=== PATIENT | female | born 1985 | race Caucasian/White ===

== ENCOUNTER 2017-06-21 18:28 | Outpatient (CLI) | payer OTHER ==
[2017-06-21 18:40] LABS: Appearance,Urine Clear (Clear); Bilirubin,Urine Negative (Negative); Blood,Urine Negative (Negative); Color,Urine Light Yellow; Glucose,Urine (UA) Negative (Negative); Ketones,Urine Negative (Negative); Leukocyte Esterase,Urine Negative (Negative); Nitrite,Urine Negative (Negative); Protein,Urine Negative (Negative); Specific Gravity,Urine 1.006 (1.001-1.035); Urobilinogen,Urine <2.0 mg/dL (<2.0)
[2017-06-21 19:23] VITALS: BP 121/70; PULSE 82; RESP 16; TEMP 97.5
--- NOTE | 2017-06-26 11:55 | P.MSEPDOC ---
Presenting Problems - Arrival Data Date of Arrival on Unit: 06/21/17 Time of Arrival on Unit: 18:28 Mode of Transport: Ambulatory - Complaint OB-Reason for Admission/Chief Complaint: Observation/Evaluation Medical History - Information : 1 Para: 0 Term: 0 : 0 Abortions: Spontaneous or Elective: 0 Number of Living Children: 0 - Gestational Age Gestational Age by CHAVA (wks/days): 20 Weeks and 2 Days Review of Systems - Review of Systems Constitutional: No problems Breast: No problems ENT: No problems Cardiovascular: No problems Respiratory: No problems Gastrointestinal: No problems Genitourinary: No problems Musculoskeletal: No problems Neurological: No problems Skin: No problems Vital Signs - Temperature Temperature: 97.5 F Temperature Source: Temporal Artery Scan - Pulse Right Sitting Pulse Rate: 82 Pulse Assessment Method: Automatic Cuff - Respirations Respiratory Rate: 16 Oxygen Delivery Method: Room Air - Blood Pressure Right Arm Blood Pressure: 121/70 Blood Pressure Mean: 87 Blood Pressure Source: Automatic Cuff Medical Screen Scoring (Pre) - Cervical Exam Dilation: Exam Deferred Effacement: Exam Deferred Membranes: Intact - Uterine Contractions Frequency: N/A - Maternal Vital Signs Maternal Temperature: N/A Maternal Blood Pressure: N/A Signs of Preeclampsia: N/A Maternal Respirations: N/A - Pain Assessment Pain Location and Character: Right, Back Pain Scale Used: Numeric (1 - 10) Pain Intensity: 7 Pain Description: *Acute Pain Frequency: Intermittent Pain Duration Units: Hours Pain Behavior: None Exhibited - Maternal Trauma Maternal Trauma: N/A - Assessment Baseline FHR: 140 - Total Score Total Score (Pre): 0 - Level of Risk Level of Risk: Low (0-5) Physician Notification (Pre) - Physician Notified Physician Notified Date: 06/21/17 Physician Notified Time: 19:08 Physician/Practitioner Notifed:: Patricia Solorzano Order Received: Yes (D/c home) Disposition - Disposition OB Disposition: Discharge to home Discharge Date: 06/21/17 Discharge Time: 19:15 I agree with the RN Medical Screening Exam: Yes Risk & Benefit of care provided described in d/c instruction: Yes Diagnosis: RELATED CONDITIONS, UNSPECIFIED, SECOND TRIMESTER
== END 2017-06-21 19:15 | disposition home or self-care (01) ==
LOC: FBPOP 18:28
PROVIDERS: ATTEND Obstetrics & Gynecology
DX: O26.92 Pregnancy related conditions, unspecified, second trimester (principal); Z3A.20 20 weeks gestation of pregnancy
CPT/HCPCS: 81003; 99213

== ENCOUNTER 2017-11-06 14:17 | Inpatient (IN) | payer BC ==
[2017-11-11] MEDS ORDERED: BUTORPHANOL 1 MG/ML 1 ML VIAL IV PRN ×2 (18:15→18:53)
[2017-11-11] MEDS ORDERED: DINOPROSTONE 10 MG INSERT.ER VAGINAL ONE (18:15)
[2017-11-11 18:27] VITALS: BMI 28.3
--- NOTE | 2017-11-11 18:40 | P.HPOB ---
History of Present Illness H&P Date: 11/11/17 Chief Complaint: IUP at 40-5/7 weeks, elective induction of labor This is a very pleasant 32-year-old 1 para 0 at 40-5/7 weeks with an estimated due date of 11/06/2017. Patient presents for elective induction of labor secondary to postdates. Patient denies contractions at this time. She notes good movement, no loss of fluid or vaginal bleeding. Next On blood work shows a blood type of O+, rubella immune, hepatitis B surface antigen negative, group beta strep was also negative in addition. This has been essentially uncomplicated Review of Systems Constitutional: Reports fatigue, Denies chills, Denies fever Cardiovascular: Reports edema Respiratory: Denies cough, Denies dyspnea Gastrointestinal: Denies constipation, Denies diarrhea Genitourinary: Reports Past Medical History Past Medical History: No Reported History History of Any Multi-Drug Resistant Organisms: None Reported Additional Past Surgical History / Comment(s): open reduction of right ankle fracture Past Anesthesia/Blood Transfusion Reactions: No Reported Reaction Past Psychological History: No Psychological Hx Reported Smoking Status: Never smoker Past Alcohol Use History: None Reported Past Drug Use History: None Reported - Past Family History Mother Family Medical History: Cancer Additional Family Medical History / Comment(s): breast cancer Medications and Allergies Allergies Allergy/AdvReac Type Severity Reaction Status Date / Time No Known Allergies Allergy Verified 06/21/17 18:32 Exam Osteopathic Statement: *. No significant issues noted on an osteopathic structural exam other than those noted in the History and Physical/Consult. - Vital Signs Vital signs: Vital Signs Temp Pulse Resp BP 11/11/17 18:14 97.6 F 90 18 118/77 Intake and Output 11/11/17 11/11/17 11/11/17 06:59 14:59 22:59 Other: Weight 74.843 kg - OBG Physical Exam Abdomen: Gravid Cervix: 1-2/70/-2 vertex Assessment and Plan (1) Term Current Visit: Yes Status: Acute Code(s): Z34.80 - ENCOUNTER FOR SUPRVSN OF NORMAL , UNSP TRIMESTER SNOMED Code(s): 73333842 (2) Post-dates Current Visit: Yes Status: Acute Code(s): O48.0 - POST-TERM SNOMED Code(s): 26046063 Plan: Will admit to labor and delivery for Cervidil induction of labor. IV fluids will be started as necessary. Labs are drawn. Stadol is ordered for pain management as needed. Patient is undecided about epidural placement once active labor begins. We will start Pitocin augmentation of labor early this morning in anticipate spontaneous vaginal delivery.
[2017-11-11 19:22] LABS: Basophils % (A) 0 %; Eosinophils # (A) 0.5 k/uL (0-0.7); Eosinophils % (A) 4 %; HCT 31.1 % (34.0-46.0); HGB 9.8 gm/dL (11.4-16.0); Hypochromasia Slight; Lymphocytes % (A) 17 %; MCH 25.9 pg (25.0-35.0); MCHC 31.4 g/dL (31.0-37.0); MCV 82.4 fL (80.0-100.0); Mean Platelet Volume 9.3; Monocytes # (A) 0.7 k/uL (0-1.0); Monocytes % (A) 5 %; Neutrophils # (A) 8.5 k/uL (1.3-7.7); Neutrophils % (A) 71 %; Platelet Count 366 k/uL (150-450); RBC 3.77 m/uL (3.80-5.40); RDW 15.2 % (11.5-15.5)
[2017-11-11 19:34] LABS: Poikilocytosis (M) Present
[2017-11-12] MEDS: LACTATED RINGERS 1,000 ML IV SCH ×4 (03:00→21:57)
[2017-11-12] MEDS ORDERED: BUPIVACAINE (PF) 0.25% 30 ML VIAL ONE (03:45)
[2017-11-12] MEDS ORDERED: fentaNYL (PF) 50 MCG/ML 5 ML AMP ONE (03:45)
[2017-11-12] MEDS ORDERED: SODIUM CHLORIDE 0.9% 100 ML BAG ONE (03:45)
[2017-11-12] MEDS ORDERED: BUPIVACAINE (PF) 0.5% 12.5 ML, fentaNYL (PF) 200 MCG in SODIUM CHLORIDE 0.9% 83.5 ML EPIDURAL ONE (04:01)
[2017-11-12] MEDS ORDERED: OXYTOCIN 10 UNIT/ML 1 ML VIAL IM PRN (04:29)
[2017-11-12] MEDS ORDERED: CARBOPROST TROMETHAMINE 250 MCG/ML 1 ML AMP IM PRN (04:29)
[2017-11-12] MEDS ORDERED: LIDOCAINE 1% (PF) 10 MG/ML (30 ML SDV) SQ PRN (04:29)
[2017-11-12] MEDS ORDERED: TERBUTALINE 1 MG/ML VIAL SQ PRN (04:29)
[2017-11-12] MEDS ORDERED: METHYLERGONOVINE 0.2 MG/ML 1 ML AMP IM PRN (04:29)
[2017-11-12] MEDS ORDERED: CITRIC ACID-SODIUM CITRATE 15 ML CUP PO ONE (05:01)
[2017-11-12] MEDS ORDERED: OXYTOCIN 10 UNIT/ML 1 ML VIAL ONE (05:15)
[2017-11-12] MEDS ORDERED: MORPHINE SULFATE (PF) 0.3 MG/0.3 ML SYR ONE (05:15)
[2017-11-12] MEDS ORDERED: fentaNYL (PF) 50 MCG/ML 2 ML AMP ONE (05:15)
[2017-11-12] MEDS ORDERED: ONDANSETRON 4 MG/2 ML VIAL ONE (05:15)
[2017-11-12] MEDS ORDERED: ZOLPIDEM 5 MG TAB PO PRN (05:51)
[2017-11-12] MEDS ORDERED: diphenhydrAMINE 50 MG CAP PO PRN (05:51)
[2017-11-12] MEDS ORDERED: METOCLOPRAMIDE 5 MG/ML 2 ML VIAL IVP PRN (05:51)
[2017-11-12] MEDS ORDERED: diphenhydrAMINE 50 MG/ML 1 ML VIAL IVP PRN ×2 (05:51)
[2017-11-12] MEDS ORDERED: ACETAMINOPHEN IV (For NPO) 1,000 MG in EMPTY BAG 1 BAG IVPB ONE (05:51)
[2017-11-12] MEDS ORDERED: diphenhydrAMINE 25 MG CAP PO PRN (05:51)
[2017-11-12] MEDS ORDERED: LANOLIN CREAM 5 GM TUBE TOPICAL PRN (05:51)
[2017-11-12] MEDS ORDERED: ACETAMINOPHEN TAB 325 MG TAB PO PRN (05:51)
[2017-11-12] MEDS ORDERED: NALOXONE 0.4 MG/ML 1 ML VIAL IV PRN (05:51)
[2017-11-12] MEDS ORDERED: ONDANSETRON 4 MG/2 ML VIAL IVP PRN (05:51)
--- NOTE | 2017-11-12 05:58 | P.OP ---
Date of Procedure: 11/12/17 Preoperative Diagnosis: IUP at 40-6/7 weeks, nonreassuring heart tones, remote from delivery Postoperative Diagnosis: Same plus meconium-stained fluid Procedure(s) Performed: Primary low transverse section Anesthesia: epidural Surgeon: Melissa Lomas Estimated Blood Loss (ml): 400 IV fluids (ml): 500 Urine output (ml): 100 Pathology: other (Placenta) Condition: stable Disposition: observation Indications for Procedure: Nonreassuring heart tones, remote from delivery Operative Findings: Normal uterus tubes and ovaries Description of Procedure: The patient was prepped and draped in the usual fashion after spinal anesthesia was administered by anesthesia. A Pfannenstiel incision was made and extended of the abdominal cavity without difficulty. The bladder peritoneum was elevated and incised and reflected distally. A 2 cm incision was made in the transverse plane of the lower uterine segment to enter the uterus at which time clear fluid was noted. The incision was extended in both directions using the bandage scissors. The head was encountered within the field and delivered up and through the incision where the nose and mouth were thoroughly suctioned. Remainder of the was delivered onto the surgical field where the cord was doubly clamped, cut, and the infant was passed for resuscitative measures with weight and Apgars as noted above. A segment of cord was then doubly clamped, cut, and set aside should cord gases become necessary. The placenta was delivered manually, intact, and was grossly normal with a grossly normal three-vessel cord. The uterus was exteriorized and the interior cavity of the uterus swept of any remaining placental and membranous fragments with a laparotomy sponge. The margins of the incision were grasped with Patel clamps and the incision closed in 2 layers. First layer was a running locking layer of 0 vicryl from margin to margin followed by a second layer of imbricating 0 vicryl from margin to margin. Any small points of bleeding were then made hemostatic with the Bovie. Once hemostasis was achieved, the posterior cul-de-sac was suctioned with a guard and the uterine and ovarian findings are as noted above. The uterus was replaced within the abdominal cavity and the gutters swept of any remaining blood fluid or clot. The incision was again reexamined and hemostasis was noted to be excellent. Any small point of bleeding were made hemostatic with the Bovie. Once hemostasis was achieved the parietal peritoneum was loosely reapproximated. The layer of muscles were examined and made hemostatic with the Bovie. Attention was then turned to the fascia which was closed with 2 running stitches of 0 Vicryl proceeding from the lateral margins to the midpoint. The subcutaneous tissues were irrigated, made hemostatic with the Bovie. The skin was reapproximated with 4-0 vicryl. Estimated blood loss for the case was approximately 400 mL. All sponge instrument and needle counts are correct. There were no complications. The patient tolerated the procedure well and proceeded to the recovery room in stable condition. Both mother and infant are resting comfortably in recovery. male infant delivered at 5:25, weight 8-3, apgars 8-9 at 1 and 5 minutes respectively
[2017-11-12] MEDS ORDERED: OXYTOCIN 20 UNITS/1000 ML NS 1,000 ML IV SCH (06:00)
[2017-11-12] MEDS ORDERED: IBUPROFEN IV 800 MG in SODIUM CHLORIDE 0.9% 250 ML IV ONE (06:00)
[2017-11-12] MEDS: OXYTOCIN 20 UNITS/1000 ML NS 1,000 ML IV SCH (07:54)
[2017-11-12] MEDS: SENNOSIDES-DOCUSATE SODIUM 1 EACH TAB PO SCH ×2 (08:35→21:57)
[2017-11-12] MEDS: IBUPROFEN 600 MG TAB PO PRN ×2 (16:26→23:33)
[2017-11-13] MEDS: LACTATED RINGERS 1,000 ML IV SCH (00:28)
[2017-11-13 06:25] LABS: Basophils % (A) 0 %; Eosinophils # (A) 0.3 k/uL (0-0.7); Eosinophils % (A) 2 %; HGB 8.7 gm/dL (11.4-16.0); Hypochromasia Moderate; Lymphocytes # (A) 2.2 k/uL (1.0-4.8); Lymphocytes % (A) 15 %; MCH 26.7 pg (25.0-35.0); MCHC 32.2 g/dL (31.0-37.0); MCV 82.9 fL (80.0-100.0); Mean Platelet Volume 8.5; Monocytes # (A) 0.8 k/uL (0-1.0); Monocytes % (A) 5 %; Neutrophils # (A) 11.4 k/uL (1.3-7.7); Neutrophils % (A) 76 %; Platelet Count 335 k/uL (150-450); RBC 3.26 m/uL (3.80-5.40); RDW 15.3 % (11.5-15.5); WBC 14.9 k/uL (3.8-10.6)
[2017-11-13] MEDS: IBUPROFEN 600 MG TAB PO PRN ×3 (06:58→19:58)
--- NOTE | 2017-11-13 07:05 | P.PN ---
Progress Note - Text Date:11/13 Time:653 Patient is status post . Patient seen this morning with VAS score of 2. c/o mild pruritus, no c/o nausea/vomiting, comfortable and doing well.
--- NOTE | 2017-11-13 09:15 | P.PNOBGPC ---
Subjective - Subjective Principal diagnosis: POD 1 LTCS Interval history: Patient is doing well on postop day 1. She is ambulating and voiding without difficulty. She states her pain is well-controlled with oral medication. She denies nausea or vomiting and is tolerating a regular diet. She denies concerns this morning. Patient reports: Reports appetite normal, Reports voiding normally, Reports pain well controlled, Reports ambulating normally [place]: doing well, nursing well Objective - Vital Signs Latest vital signs: Vital Signs Temp Pulse Resp BP Pulse Ox 11/13/17 07:36 98.3 F 85 18 120/77 97 11/13/17 04:00 97.8 F 75 16 121/71 96 11/12/17 23:58 98.2 F 82 16 118/74 11/12/17 19:58 98.5 F 90 16 98 11/12/17 16:30 98.3 F 83 18 112/74 98 11/12/17 12:00 97.8 F 62 16 123/80 Intake and Output 11/12/17 11/13/17 11/13/17 22:59 06:59 14:59 Output Total 1100 Balance -1100 Output: Urine 1100 Other: # Voids 1 1 - Exam Extremities: Present: normal Abdomen: Present: soft Incision: Present: normal, dry, intact Uterus: Present: firm - Labs Labs: Abnormal Lab Results - Last 24 Hours (Table) 11/13/17 Range/Units 05:35 WBC 14.9 H (3.8-10.6) k/uL RBC 3.26 L (3.80-5.40) m/uL Hgb 8.7 L (11.4-16.0) gm/dL Hct 27.0 L (34.0-46.0) % Neutrophils # 11.4 H (1.3-7.7) k/uL Assessment and Plan (1) Term Current Visit: Yes Status: Acute Code(s): Z34.80 - ENCOUNTER FOR SUPRVSN OF NORMAL , UNSP TRIMESTER SNOMED Code(s): 79351819 (2) Post-dates Current Visit: Yes Status: Acute Code(s): O48.0 - POST-TERM SNOMED Code(s): 93941993 (3) S/P section Current Visit: Yes Status: Acute Code(s): Z98.891 - HISTORY OF UTERINE SCAR FROM PREVIOUS SURGERY SNOMED Code(s): 371313682 (4) Anemia affecting first Narrative/Plan: Will start iron twice daily Current Visit: Yes Status: Acute Code(s): O99.019 - ANEMIA COMPLICATING , UNSPECIFIED TRIMESTER SNOMED Code(s): 68117307 Plan: Patient is doing well postoperatively, will continue current care and anticipate discharge tomorrow morning.
[2017-11-13] MEDS ORDERED: HYDROcodone/APAP 5-325MG 1 EACH TAB PO PRN (09:16)
[2017-11-13] MEDS ORDERED: DIPH,PERTUS(ACELL)TETVAC-LF 0.5 ML VIAL IM ONE (11:16)
[2017-11-13] MEDS: HYDROcodone/APAP 5-325MG 1 EACH TAB PO PRN (11:37)
[2017-11-13] MEDS: SENNOSIDES-DOCUSATE SODIUM 1 EACH TAB PO SCH ×2 (12:20→19:58)
[2017-11-13] MEDS: IRON POLYSACCHARIDES COMPLEX 150 MG CAP PO SCH (12:41)
[2017-11-14] MEDS: LACTATED RINGERS 1,000 ML IV SCH ×3 (00:10→00:11)
[2017-11-14] MEDS: OXYTOCIN 20 UNITS/1000 ML NS 1,000 ML IV SCH (00:11)
[2017-11-14] MEDS: HYDROcodone/APAP 5-325MG 1 EACH TAB PO PRN (01:01)
[2017-11-14] MEDS: IBUPROFEN 600 MG TAB PO PRN ×2 (04:27→10:55)
[2017-11-14] MEDS: SENNOSIDES-DOCUSATE SODIUM 1 EACH TAB PO SCH (08:05)
[2017-11-14 08:26] VITALS: BP 126/69; PULSE 89; RESP 18; TEMP 98.2
--- NOTE | 2017-11-14 08:44 | P.DS ---
Providers Date of admission: 11/11/17 18:10 Expected date of discharge: 11/14/17 Attending physician: Melissa Lomas Primary care physician: Stated None Hospital Course: This is a 32-year-old white female 1 para 0 EDC 11/06/2017 at 40-5/7 weeks' gestation. Patient presented for Cervidil induction for unfavorable cervix. was essentially unremarkable, blood type O+, rubella status immune, group B strep cultures negative. Please see dictated history and physical for details. Artificial amniorrhexis revealed meconium-stained fluid. Ultimately the diagnosis of intolerance of labor was given, and the decision was made to proceed with primary low transverse section. She gave to a liveborn male with scores of 8 and 9 at one and 5 minutes respectively. weight 8 lbs. 3 oz. or 3700 g. Please see dictated operative note for details. This morning the patient is doing well. She is voiding, ambulating and passing flatus without difficulty. Vital signs are stable and she is afebrile. Fundus is firm and in the midline, symmetric and 18 week size. Pain is well- controlled with ibuprofen. Incision is clean and dry, intact, Steri-Strips applied. has been circumcised and appears to be doing well. Patient is being discharged home in good condition. She will follow-up with her primary home restoration service cleaner in 2 weeks. She is reminded no intercourse, tampons or douching. She will use [id number] Motrin products, 200 mg pills, 3 every 6 hours as needed for pain. I've given her prescription for a double electric breast pump per her request. I reminded her no driving, no heavy lifting, to call with any fevers shakes or chills, foul smelling or copious lochia, with the passage of large blood clots, with any pain not alleviated by ibuprofen, or indeed with any concerns. Patient Condition at Discharge: Good Plan - Discharge Summary Follow up Appointment(s)/Referral(s): Melissa Lomas DO [Doctor of Osteopathic Medicine] - 2 Weeks Discharge Disposition: HOME SELF-CARE
[2017-11-14] MEDS: IRON POLYSACCHARIDES COMPLEX 150 MG CAP PO SCH (10:54)
== END 2017-11-14 12:15 | disposition home or self-care (01) | DRG 766 ==
LOC: 4FBP 11-11 18:10
PROVIDERS: ADMIT Obstetrics & Gynecology Obstetrics; ATTEND Obstetrics & Gynecology Obstetrics
PROC: 3E0P7VZ Introduction of Hormone into Female Reproductive, Via Natural or Artificial Opening (ICD-10-PCS; principal; 2017-11-11)
PROC: 10D00Z1 Extraction of Products of Conception, Low, Open Approach (ICD-10-PCS; 2017-11-11)
PROC: 10E0XZZ Delivery of Products of Conception, External Approach (ICD-10-PCS; 2017-11-11)
PROC: 00HU33Z Insertion of Infusion Device into Spinal Canal, Percutaneous Approach (ICD-10-PCS; 2017-11-11)
PROC: 3E0R3NZ Introduction of Analgesics, Hypnotics, Sedatives into Spinal Canal, Percutaneous Approach (ICD-10-PCS; 2017-11-11)
DX: O48.0 Post-term pregnancy (principal); O77.0 Labor and delivery complicated by meconium in amniotic fluid; O76 Abnormality in fetal heart rate and rhythm complicating labor and delivery; O99.02 Anemia complicating childbirth; D64.9 Anemia, unspecified; Z37.0 Single live birth; Z3A.40 40 weeks gestation of pregnancy; Z80.3 Family history of malignant neoplasm of breast; Z98.890 Other specified postprocedural states
CPT/HCPCS: 85025; 86850; 86900; 86901; 88307; 90715

== ENCOUNTER 2019-02-01 19:27 | Emergency (ER) | payer BC ==
[2019-02-01 19:44] VITALS: BP 118/69; PULSE 70; RESP 16; TEMP 97.8
--- NOTE | 2019-02-01 20:00 | ED ---
General Adult HPI - General Chief complaint: Urogenital Stated complaint: UTI, blood in urine Time Seen by Provider: 02/01/19 19:46 Source: patient Mode of arrival: ambulatory Limitations: no limitations - History of Present Illness Initial comments: 33-year-old female patient presents to the emergency department today for evaluation of hematuria, dysuria, urinary frequency, and urinary urgency. Patient states she is also having some mild suprapubic cramping. Patient states this started approximately 5 days ago. States that she was seen and evaluated 4 days ago at [facility] and was diagnosed with urinary tract infection, given Bactrim and Pyridium. Patient states she mixed the medications up, did complete the Pyridium and stopped taking the Bactrim after 2 days. She states that today her symptoms returned. States that she noticed blood in her urine this morning. States that she is having some mild nausea but denies any back pain, fever, or chills. Patient denies any recent rash, shortness breath, chest pain, diarrhea, constipation, back pain, numbness, tingling, dizziness, weakness, headache, visual changes, or any other complaints. - Related Data Previous Rx's Medication Instructions Recorded Cephalexin [Keflex] 500 mg PO BID #14 cap 02/01/19 Phenazopyridine [Pyridium] 200 mg PO TID #9 tablet 02/01/19 Allergies Allergy/AdvReac Type Severity Reaction Status Date / Time No Known Allergies Allergy Verified 02/01/19 19:44 Review of Systems ROS Statement: Those systems with pertinent positive or pertinent negative responses have been documented in the HPI. ROS Other: All systems not noted in ROS Statement are negative. Past Medical History Past Medical History: No Reported History History of Any Multi-Drug Resistant Organisms: None Reported Additional Past Surgical History / Comment(s): open reduction of right ankle fracture Past Anesthesia/Blood Transfusion Reactions: No Reported Reaction Past Psychological History: No Psychological Hx Reported Smoking Status: Never smoker Past Alcohol Use History: None Reported Past Drug Use History: None Reported - Past Family History Mother Family Medical History: Cancer Additional Family Medical History / Comment(s): breast cancer General Exam Limitations: no limitations General appearance: alert, in no apparent distress, other (Physical well- developed, well-nourished adult female patient in no acute distress. Vital signs upon presentation are temperature 97.8F, pulse 70, respiration 16, blood pressure 118/69, pulse ox 100% on room air.) Eye exam: Present: normal appearance, PERRL, EOMI. Absent: scleral icterus, conjunctival injection, periorbital swelling ENT exam: Present: normal exam, normal oropharynx, mucous membranes moist Respiratory exam: Present: normal lung sounds bilaterally. Absent: respiratory distress, wheezes, rales, rhonchi, stridor Cardiovascular Exam: Present: regular rate, normal rhythm, normal heart sounds. Absent: systolic murmur, diastolic murmur, rubs, gallop, clicks GI/Abdominal exam: Present: soft, tenderness (Suprapubic), normal bowel sounds. Absent: distended, guarding, rebound, rigid Back exam: Present: normal inspection. Absent: CVA tenderness (R), CVA tenderness (L) Neurological exam: Present: alert, oriented X3, CN II-XII intact Psychiatric exam: Present: normal affect, normal mood Skin exam: Present: warm, dry, intact, normal color. Absent: rash Course Vital Signs 02/01/19 19:41 Temperature 97.8 F Pulse Rate 70 Respiratory 16 Rate Blood Pressure 118/69 O2 Sat by Pulse 100 Oximetry Medical Decision Making - Medical Decision Making 33-year-old female patient presented to the emergency department today for evaluation of hematuria, urinary urgency, urinary frequency, some cramping. Physical examination revealed some mild superpubic tenderness. No CVA tenderness. She is afebrile, with normal vitals. Urinalysis was obtained and showed a turbid appearance with 2+ protein, 1+ ketone, large amount of blood, large leukocyte esterase, greater than 182 red blood cells, greater than 182 white blood cells, many white blood cell clumps, 9 squamous epithelial cells, and few urine mucus. HCG was negative. Patient recently started and stopped Bactrim. We will switch to Keflex. Urine has been sent for culture. She'll be given a prescription for Pyridium for symptom relief. She is instructed to increase fluids. Instructed to follow-up with her primary care physician for recheck in 1-2 days. Return parameters discussed in detail. She verbalizes understanding and agrees with this plan. - Lab Data Lab Results 02/01/19 02/01/19 Range/Units 20:02 20:02 Urine Color Light Red Urine Appearance Turbid H (Clear) Urine pH 6.0 (5.0-8.0) Ur Specific [place] 1.022 (1.001-1.035) Urine Protein 2+ H (Negative) Urine Glucose (UA) Negative (Negative) Urine Ketones 1+ H (Negative) Urine Blood Large H (Negative) Urine Nitrite Negative (Negative) Urine Bilirubin Negative (Negative) Urine Urobilinogen <2.0 (<2.0) mg/dL Ur Leukocyte Esterase Large H (Negative) Urine RBC >182 H (0-5) /hpf Urine WBC >182 H (0-5) /hpf Urine WBC Clumps Many H (None) /hpf Ur Squamous Epith Cells 9 H (0-4) /hpf Urine Mucus Few H (None) /hpf Urine HCG, Qual Not Detected (Not Detectd) Disposition Clinical Impression: Urinary tract infection Disposition: HOME SELF-CARE Condition: Good Instructions (If sedation given, give patient instructions): Urinary Tract Infection in Women (ED) Additional Instructions: Increase fluids, especially water. Complete antibiotic prescription in full. Use pyridium as needed for urinary pain relief. Follow up with your primary care physician for recheck in 1-2 days. Have repeat urinalysis performed by your doctor once antibiotics are complete to ensure clearance of infection. Return to the emergency department immediately for any new, worsening, or concerning symptoms. Prescriptions: Cephalexin [Keflex] 500 mg PO BID #14 cap Phenazopyridine [Pyridium] 200 mg PO TID #9 tablet Is patient prescribed a controlled substance at d/c from ED?: No Referrals: None,Stated [Primary Care Provider] - 1-2 days Time of Disposition: 20:25
[2019-02-01 20:17] LABS: Appearance,Urine Turbid (Clear); Bilirubin,Urine Negative (Negative); Blood,Urine Large (Negative); Color,Urine Light Red; Glucose,Urine (UA) Negative (Negative); Ketones,Urine 1+ (Negative); Leukocyte Esterase,Urine Large (Negative); Mucus,Urine Few /hpf; Nitrite,Urine Negative (Negative); Protein,Urine 2+ (Negative); RBC,Urine >182 /hpf (0-5); Specific Gravity,Urine 1.022 (1.001-1.035); Squamous Epithelial Cell,Urine 9 /hpf (0-4); Urobilinogen,Urine <2.0 mg/dL (<2.0); WBC,Urine >182 /hpf (0-5)
[2019-02-01] MEDS ORDERED: CEPHALEXIN 500MG STARTER PACK 4 CAP BTL PO STA (20:23)
== END 2019-02-01 20:33 | disposition home or self-care (01) ==
LOC: EC 19:27
DX: N39.0 Urinary tract infection, site not specified (principal); Z32.02 Encounter for pregnancy test, result negative
CPT/HCPCS: 81001; 81025; 87077; 87086; 87186; 99283

== ENCOUNTER 2020-07-03 07:35 | Inpatient (IN) | payer BC ==
[2020-07-03] MEDS ORDERED: METHYLERGONOVINE 0.2 MG/ML 1 ML AMP IM PRN (08:54)
[2020-07-03] MEDS ORDERED: TERBUTALINE 1 MG/ML VIAL SQ PRN (08:54)
[2020-07-03] MEDS ORDERED: OXYTOCIN 10 UNIT/ML 1 ML VIAL IM PRN (08:54)
[2020-07-03] MEDS ORDERED: LIDOCAINE 0.5% (PF) 5 MG/ML (50 ML SDV) SQ PRN (08:54)
[2020-07-03] MEDS ORDERED: CARBOPROST TROMETHAMINE 250 MCG/ML 1 ML AMP IM PRN (08:54)
[2020-07-03] MEDS: LACTATED RINGERS 1,000 ML IV SCH ×7 (09:32→23:04)
[2020-07-03] MEDS: OXYTOCIN 30 UNITS/500 ML NS 30 UNIT in SALINE 1 500ML.BAG IV SCH ×2 (09:33→16:21)
[2020-07-03 09:42] LABS: Basophils # (A) 0.1 k/uL (0-0.2); Basophils % (A) 0 %; Eosinophils # (A) 0.4 k/uL (0-0.7); Eosinophils % (A) 3 %; HCT 36.5 % (34.0-46.0); HGB 12.2 gm/dL (11.4-16.0); Lymphocytes # (A) 2.2 k/uL (1.0-4.8); Lymphocytes % (A) 16 %; MCH 28.8 pg (25.0-35.0); MCHC 33.3 g/dL (31.0-37.0); MCV 86.5 fL (80.0-100.0); Mean Platelet Volume 8.3; Monocytes # (A) 0.8 k/uL (0-1.0); Monocytes % (A) 6 %; Neutrophils # (A) 10.2 k/uL (1.3-7.7); Neutrophils % (A) 74 %; Platelet Count 416 k/uL (150-450); RBC 4.22 m/uL (3.80-5.40); RDW 14.2 % (11.5-15.5); WBC 13.7 k/uL (3.8-10.6)
--- NOTE | 2020-07-03 10:19 | P.HPOB ---
History of Present Illness H&P Date: 07/03/20 Chief Complaint: IUP at 40 and 1/sevenths weeks, early labor, history of C-s ection 1 This is a 35-year-old 2 para 1001 at 40 and one sevenths weeks that presented to labor and delivery this morning with complaints of contractions. Patient states she started bozena every 5-6 minutes around 5:30 this morning. Patient denied vaginal bleeding or loss of fluid at that time. Patient notes the baby to be active. Patient has been receiving routine care which is been essentially uncomplicated. Patient was measuring for small for gestational age and ultrasound evaluation was completed throughout the revealing a normal size approximately 15 percentile, 5-0 on 05/29. Patient does have a prior history of a primary for nonre assuring heart tones with her last . Patient was induction of labor at 41 weeks, subsequently got to 3 cm when nonreassuring heart tones were noted and she was taken for primary . On blood work she has a blood type of O+, rubella status immune, RPR nonreactive, hepatitis B surface antigen negative, HIV negative. She does have a history of hypothyroidism which has been stable throughout the . She received her flu shot on 04/05, and her T Dap injection on 05/29. Group beta strep culture was negative on 06/07. Review of Systems Constitutional: Denies chills, Denies fatigue, Denies fever Ears, nose, mouth and throat: Denies headache Cardiovascular: Reports leg edema Respiratory: Denies dyspnea Gastrointestinal: Denies constipation, Denies diarrhea, Denies nausea, Denies vomiting Genitourinary: Reports Past Medical History Past Medical History: No Reported History Additional Past Medical History / Comment(s): hypothyroidism History of Any Multi-Drug Resistant Organisms: None Reported Past Surgical History: Section Additional Past Surgical History / Comment(s): open reduction of right ankle fracture Past Anesthesia/Blood Transfusion Reactions: No Reported Reaction Past Psychological History: No Psychological Hx Reported Smoking Status: Never smoker Past Alcohol Use History: None Reported Past Drug Use History: None Reported - Past Family History Mother Family Medical History: Cancer Additional Family Medical History / Comment(s): breast cancer Medications and Allergies Home Medications Medication Instructions Recorded Confirmed Type Levothyroxine Sodium [Synthroid] 25 mcg PO DAILY 07/03/20 07/03/20 History Pnv No.95/Ferrous Fum/Folic AC 1 tab PO DAILY 07/03/20 07/03/20 History [ Multivitamin Tablet] Allergies Allergy/AdvReac Type Severity Reaction Status Date / Time No Known Allergies Allergy Verified 07/03/20 07:54 Exam Osteopathic Statement: *. No significant issues noted on an osteopathic structural exam other than those noted in the History and Physical/Consult. Vital Signs Temp Pulse Resp BP Pulse Ox 07/03/20 09:49 97.8 F 82 16 118/66 99 07/03/20 09:34 96.7 F L 78 16 124/79 95 Intake and Output 07/02/20 07/03/20 07/03/20 22:59 06:59 14:59 Other: Weight 70.307 kg Targeted physical exam is performed on this date and rails developer a well-nourished well-developed female in no acute distress, breathing is noted to be nonlabored, heart has a regular rate and rhythm, abdomen is gravid and appropriate for gestational age, heart tones returned be category 1 and she is bozena irregularly, on cervical exam she is 1/80/-2 station amniotomy is performed and clear fluid was obtained. Results Result Diagrams: 07/03/20 09:20 Abnormal Lab Results - Last 24 Hours (Table) 07/03/20 Range/Units 09:20 WBC 13.7 H (3.8-10.6) k/uL Neutrophils # 10.2 H (1.3-7.7) k/uL Assessment and Plan (1) H/O section Current Visit: Yes Status: Acute Code(s): Z98.891 - HISTORY OF UTERINE SCAR FROM PREVIOUS SURGERY SNOMED Code(s): 375531645 (2) Vaginal after Current Visit: Yes Status: Acute Code(s): O34.219 - MATERNAL CARE FOR UNSP TYPE SCAR FROM PREVIOUS DEL SNOMED Code(s): 375648790 (3) Term Current Visit: No Status: Acute Code(s): Z34.80 - ENCOUNTER FOR SUPRVSN OF NORMAL , UNSP TRIMESTER SNOMED Code(s): 04303597 Plan: This 35-year-old 001 at 30 and one sevenths weeks presented to labor and delivery in early labor. Patient desires trial of labor after . Patient is counseled on the fact that she is not in labor at this time she desires to have augmentation of labor and not be discharged home. Patient is counseled on possible failure of trial of labor given her history of and not being in labor at this time. Patient wishes to stay. IV Pitocin is begun per hospital protocol, amniotomy was performed and clear fluid was obtained. Patient does request epidural placement for analgesia during labor. We will monitor closely and reassess throughout labor.
[2020-07-03] MEDS ORDERED: SODIUM CHLORIDE 0.9% 100 ML BAG ONE (10:33)
[2020-07-03] MEDS ORDERED: BUPIVACAINE (PF) 0.25% 30 ML VIAL ONE (10:33)
[2020-07-03] MEDS ORDERED: fentaNYL (PF) 50 MCG/ML 5 ML AMP ONE (10:33)
[2020-07-03] MEDS ORDERED: SUCCINYLCHOLINE CHLORIDE 100 MG/5 ML SYR IV ONE (14:03)
[2020-07-03] MEDS ORDERED: MIDAZOLAM 2 MG/2 ML VIAL ONE (14:03)
[2020-07-03] MEDS ORDERED: PROPOFOL 10 MG/ML 20 ML VIAL IV ONE (14:03)
[2020-07-03] MEDS ORDERED: MORPHINE SULFATE (PF) 0.3 MG/0.3 ML SYR ONE (14:03)
[2020-07-03] MEDS ORDERED: OXYTOCIN 10 UNIT/ML 1 ML VIAL ONE (14:03)
[2020-07-03] MEDS ORDERED: ONDANSETRON 4 MG/2 ML VIAL ONE (14:03)
[2020-07-03] MEDS ORDERED: HYDROcodone/APAP 5-325MG 1 EACH TAB PO PRN (14:41)
[2020-07-03] MEDS ORDERED: NALOXONE 0.4 MG/ML 1 ML VIAL IV PRN (14:41)
[2020-07-03] MEDS ORDERED: diphenhydrAMINE 50 MG/ML 1 ML VIAL IVP PRN ×2 (14:41)
[2020-07-03] MEDS ORDERED: diphenhydrAMINE 25 MG CAP PO PRN (14:41)
[2020-07-03] MEDS ORDERED: METOCLOPRAMIDE 5 MG/ML 2 ML VIAL IVP PRN (14:41)
[2020-07-03] MEDS ORDERED: ZOLPIDEM 5 MG TAB PO PRN (14:41)
[2020-07-03] MEDS ORDERED: ACETAMINOPHEN IV (For NPO) 1,000 MG in EMPTY BAG 1 BAG IVPB ONE (14:41)
[2020-07-03] MEDS ORDERED: diphenhydrAMINE 50 MG CAP PO PRN (14:41)
[2020-07-03] MEDS ORDERED: ONDANSETRON 4 MG/2 ML VIAL IVP PRN (14:41)
[2020-07-03] MEDS ORDERED: OXYTOCIN 30 UNITS/500 ML NS 30 UNIT in SALINE 1 500ML.BAG IV SCH (14:45)
--- NOTE | 2020-07-03 14:48 | P.OP ---
Date of Procedure: 07/03/20 Preoperative Diagnosis: IUP at 40 and one sevenths weeks, history of 1, nonreassuring heart tones Postoperative Diagnosis: Same plus abruption Procedure(s) Performed: Repeat section Anesthesia: NICHOLE Surgeon: Melissa Lomas Physician Primary Care Sports Medicine #1: Anabel Dale Estimated Blood Loss (ml): 476 IV fluids (ml): 800 Urine output (ml): 200 Pathology: other (Placenta) Condition: stable Disposition: PACU Indications for Procedure: 35-year-old at 40 and one sevenths weeks that presented to labor and delivery this morning with complaints of contractions. Although not labor patient wish to stay given her history of in her desire to TOLAC. Patient was admitted to labor and delivery and a small amount of Pitocin was instituted to augment labor. Amniotomy was performed and clear fluid was obtained. Patient progressed slowly in labor but became uncomfortable requesting epidural placement. Epidural was placed by anesthesia. Patient was noted to be 2 cm, nonreassuring heart tones were diagnosed with a deceleration down to the 70s. Patient was taken back for stat section Operative Findings: Normal uterus tubes and ovaries were appreciated, upon entering the uterus a large clot was noted consistent with abruption. Viable male delivered weight and Apgars are pending Description of Procedure: Patient was taken back to the operating suite where general anesthesia was obtained without difficulty by the anesthesia department. She was prepped and draped in normal sterile fashion in the dorsal supine position. A Pfannenstiel skin incision was made with the scalpel and carried through the underlying layer of fascia. The fascia was incised the midline and extended laterally. The superior aspect of the fascial incision was then grasped natalya clamps, elevated and underlying rectus muscles dissected off sharply. The inferior aspect of the fascial incision was then grasped natalya clamps, elevated and underlying rectus muscles dissected off sharply. Rectus muscles were in the midline the peritoneum was identified and entered. The bladder blade was inserted into the pelvis. The vesicouterine peritoneum was identified and a bladder flap was then created using sharp and blunt dissection. Hysterotomy incision was made and a large clot was noted to be extruding once entering the uterine cavity. The was still delivered in the vertex presentation the umbilical cords doubly clamped and cut and the was handed off to awaiting RN. The placenta was noted to be loosely adherent with bloody amniotic fluid. The uterus was then delivered from the abdomen and cleared of all clots and debris. The lower uterine segment was noted to be very thin. The lower uterine segment was closed in a running locked fashion with 0 Vicryl. A second indicating suture was used to obtain closure. Hemostasis was appreciated. The pelvis was then copiously irrigated. The uterus was returned to the abdomen. The gutters were cleared of all clots and debris. The hysterotomy incision was inspected and found to be hemostatic. The peritoneum was then loosely reapproximated and the fascia was closed with 0 Vicryl in a running fashion from one lateral to the other. The subcutaneous tissue was irrigated and found to be hemostatic. The subcu tissue was then closed with 3-0 Vicryl. The skin was then closed with 4-0 Vicryl in a subarticular fashion. Steri-Strips and sterile dressings were applied as needed. All counts are noted to be correct 2 at the end of the procedure mom and tolerated delivery well.
[2020-07-03] MEDS ORDERED: IBUPROFEN IV 800 MG in SODIUM CHLORIDE 0.9% 250 ML IV ONE (15:15)
[2020-07-03] MEDS: SENNOSIDES-DOCUSATE SODIUM 1 EACH TAB PO SCH (20:16)
[2020-07-03] MEDS: LEVOTHYROXINE 25 MCG TAB PO SCH (20:16)
[2020-07-04] MEDS: IBUPROFEN 600 MG TAB PO PRN ×3 (03:52→19:08)
[2020-07-04 07:17] LABS: Basophils % (A) 0 %; Eosinophils % (A) 0 %; HCT 30.9 % (34.0-46.0); HGB 10.1 gm/dL (11.4-16.0); Lymphocytes # (A) 1.7 k/uL (1.0-4.8); Lymphocytes % (A) 11 %; MCH 28.4 pg (25.0-35.0); MCHC 32.6 g/dL (31.0-37.0); Mean Platelet Volume 8.3; Monocytes # (A) 0.6 k/uL (0-1.0); Monocytes % (A) 4 %; Neutrophils # (A) 12.8 k/uL (1.3-7.7); Neutrophils % (A) 84 %; Platelet Count 363 k/uL (150-450); RBC 3.54 m/uL (3.80-5.40); RDW 14.1 % (11.5-15.5); WBC 15.2 k/uL (3.8-10.6)
--- NOTE | 2020-07-04 08:09 | P.PNOBGPC ---
Subjective - Subjective Principal diagnosis: POD 1 RCS, failed Interval history: Patient did well overnight. She is voiding without difficulty. She states her pain is controlled with IV medication. Her lochia is minimal. She is breast- feeding without difficulty. Patient reports: Reports appetite normal, Reports voiding normally, Reports pain well controlled, Reports ambulating normally : doing well Objective - Vital Signs Latest vital signs: Vital Signs Temp Pulse Resp BP Pulse Ox 07/04/20 04:00 97.8 F 62 16 109/59 07/03/20 23:59 97.4 F L 63 16 108/64 07/03/20 20:00 97.1 F L 58 L 16 97/60 100 07/03/20 16:50 96.9 F L 53 L 16 102/64 96 07/03/20 16:20 54 L 16 107/64 97 07/03/20 15:50 74 18 103/65 97 07/03/20 15:35 63 16 110/69 99 07/03/20 15:20 83 18 109/66 99 07/03/20 15:05 91 16 110/63 97 07/03/20 14:50 96.9 F L 109 H 16 126/55 94 L 07/03/20 09:49 97.8 F 82 16 118/66 99 07/03/20 09:34 96.7 F L 78 16 124/79 95 Intake and Output 07/03/20 07/04/20 07/04/20 22:59 06:59 14:59 Intake Total 204 Output Total 1402 1401 Balance -1198 -1401 Intake: Intake, IV Titration 204 Amount Oxytocin 30 Units/500 ml 204 Ns 30 unit In Saline 1 500ml.bag @ Per Protocol IV .Q0M [facility] Rx#:[id number] Output: Urine 1400 1400 Uretheral ([place]) 1400 Emesis 2 1 - Exam Extremities: Present: normal, edema Abdomen: Present: normal appearance, soft Incision: Present: normal, intact Uterus: Present: normal - Labs Labs: Abnormal Lab Results - Last 24 Hours (Table) 07/03/20 07/04/20 Range/Units 09:20 07:03 WBC 13.7 H 15.2 H (3.8-10.6) k/uL RBC 3.54 L (3.80-5.40) m/uL Hgb 10.1 L (11.4-16.0) gm/dL Hct 30.9 L (34.0-46.0) % Neutrophils # 10.2 H 12.8 H (1.3-7.7) k/uL Assessment and Plan (1) H/O section Current Visit: Yes Status: Acute Code(s): Z98.891 - HISTORY OF UTERINE SCAR FROM PREVIOUS SURGERY SNOMED Code(s): 720847630 (2) Vaginal after Current Visit: Yes Status: Acute Code(s): O34.219 - MATERNAL CARE FOR UNSP TYPE SCAR FROM PREVIOUS DEL SNOMED Code(s): 122378004 (3) Term Current Visit: No Status: Acute Code(s): Z34.80 - ENCOUNTER FOR SUPRVSN OF NORMAL , UNSP TRIMESTER SNOMED Code(s): 12669120 (4) S/P section Current Visit: No Status: Acute Code(s): Z98.891 - HISTORY OF UTERINE SCAR FROM PREVIOUS SURGERY SNOMED Code(s): 917985255 Plan: We will encourage increased ambulation today, advance diet to regular. Continue routine postoperative care.
[2020-07-04] MEDS: ACETAMINOPHEN TAB 325 MG TAB PO PRN ×3 (08:37→23:13)
[2020-07-04] MEDS: PRENATAL VIT-IRON-FOLIC ACID 1 EACH CAP PO SCH (09:39)
[2020-07-04] MEDS: SENNOSIDES-DOCUSATE SODIUM 1 EACH TAB PO SCH ×2 (09:39→19:08)
[2020-07-04] MEDS: LEVOTHYROXINE 25 MCG TAB PO SCH (20:40)
[2020-07-04] MEDS: SIMETHICONE 80 MG CHEWABLE PO PRN (20:40)
[2020-07-05 02:04] VITALS: RESP 16
[2020-07-05] MEDS: IBUPROFEN 600 MG TAB PO PRN ×2 (03:02→11:39)
[2020-07-05] MEDS: SIMETHICONE 80 MG CHEWABLE PO PRN (06:55)
[2020-07-05] MEDS: ACETAMINOPHEN TAB 325 MG TAB PO PRN (06:55)
[2020-07-05] MEDS: SENNOSIDES-DOCUSATE SODIUM 1 EACH TAB PO SCH (07:49)
--- NOTE | 2020-07-05 08:07 | P.DS ---
Providers Date of admission: 07/03/20 08:52 Expected date of discharge: 07/05/20 Attending physician: Melissa Lmoas Primary care physician: Stated None - Discharge Diagnosis(es) (1) H/O section Current Visit: Yes Status: Acute (2) Vaginal after Current Visit: Yes Status: Acute (3) Term Current Visit: No Status: Acute (4) S/P section Current Visit: No Status: Acute Hospital Course: This is a 35-year-old 001 that presented to labor and delivery at 40 1/7 weeks with complaints of painful contractions. Patient was evaluated and found to be in early labor. Patient was given the option of going home as she has a history of a prior and requested trial of labor after . Patient declined going home and wish to stay. Patient was admitted to labor and delivery and Pitocin induction of labor was begun. Amniotomy was performed and clear fluid was obtained. Patient progressed through labor eventually becoming uncomfortable and requesting epidural placement. Patient made change at that time. Patient had epidural placed by the anesthesia Department without difficulty. Patient progressed through labor was noted to be 5 cm and nonreassuring heart tones were noted. deceleration down to the 70s with no return to baseline. Patient was taken back for urgent with general anesthesia. Patient delivered a viable male at 1412, weight of 7 lbs. 0 oz. and Apgars at of 58 and 9 at one and 5 and 10 minutes respectively. For further details on the please see the operative report. Patient's postoperative course has been uneventful. On this postoperative day #2 she is ambulating and voiding without difficulty. She is tolerating a regular diet without nausea or vomiting. She states her pain is well-controlled. She would like discharge home today if possible. Patient Condition at Discharge: Good Plan - Discharge Summary New Discharge Prescriptions: No Action Levothyroxine Sodium [Synthroid] 25 mcg PO DAILY Pnv No.95/Ferrous Fum/Folic AC [ Multivitamin Tablet] 1 tab PO DAILY Discharge Medication List Levothyroxine Sodium [Synthroid] 25 mcg PO DAILY 07/03/20 [History] Pnv No.95/Ferrous Fum/Folic AC [ Multivitamin Tablet] 1 tab PO DAILY 07/03/20 [History] Follow up Appointment(s)/Referral(s): Melissa Lomas DO [Doctor of Osteopathic Medicine] - 2 Weeks Patient Instructions/Handouts: (DC), (GEN) Discharge Disposition: HOME SELF-CARE
[2020-07-05 09:37] VITALS: BP 115/74; PULSE 75; TEMP 97.9
[2020-07-05] MEDS: PRENATAL VIT-IRON-FOLIC ACID 1 EACH CAP PO SCH (11:39)
== END 2020-07-05 11:45 | disposition home or self-care (01) | DRG 786 ==
LOC: FBPOP 07:35 → 4FBP 08:52
PROVIDERS: ADMIT Obstetrics & Gynecology Obstetrics; ATTEND Obstetrics & Gynecology Obstetrics
PROC: 10D00Z1 Extraction of Products of Conception, Low, Open Approach (ICD-10-PCS; principal; 2020-07-03 14:03)
DX: O76 Abnormality in fetal heart rate and rhythm complicating labor and delivery (principal); O45.93 Premature separation of placenta, unspecified, third trimester; O34.211 Maternal care for low transverse scar from previous cesarean delivery; O99.284 Endocrine, nutritional and metabolic diseases complicating childbirth; E03.9 Hypothyroidism, unspecified; Z37.0 Single live birth; Z3A.40 40 weeks gestation of pregnancy; Z79.890 Hormone replacement therapy; Z80.3 Family history of malignant neoplasm of breast
CPT/HCPCS: 59025; 85025; 86850; 86900; 86901; 88307; 99213

== ENCOUNTER → 2022-12-18 | Outpatient (CLI) | payer BC ==
--- NOTE | 2022-12-19 06:31 | MM ---
Reason for Exam: Screening (asymptomatic). Patient History: Menarche at age 17. First Full-Term at age 32. Late child-bearing (after 32). Premenopausal. Hormonal Contraceptives for 2 years from age 20 until age 22. Paternal grandmother had breast cancer at or over age 50. Mother had breast cancer, age 45. Last menstrual period: 12/17/2002 Risk Values: Varsha 5 year model risk: 0.5%. NCI Lifetime model risk: 18.1%. Tissue Density: The breast tissue is extremely dense which could obscure a lesion on mammography. Findings: Analyzed By CAD. There is no suspicious group of microcalcifications or new suspicious mass in either breast. Overall Assessment: Negative, BI-RAD 1 Management: Screening Mammogram of both breasts at age 42. Some advise bilateral breast ultrasound surveillance in patient's with background extremely dense tissue. Patient should continue monthly self-breast exams. A clinical breast exam by your physician is recommended on an annual basis. This exam should not preclude additional follow-up of suspicious palpable abnormalities. Note on Varsha scores and lifetime risk: 1. A Varsha score greater than 3% is considered moderate risk. If this is the case, consider specialist referral to assess eligibility for a risk reducing agent. 2. If overall lifetime risk for the development of breast cancer is 20% or higher, the patient may qualify for future screening with alternating mammogram and breast MRI. Electronically signed and approved by: Roc Knapp M.D.
== END | disposition home or self-care (01) ==
LOC: RADMAMWWP 10:16
PROVIDERS: ATTEND Family Medicine
DX: Z12.31 Encounter for screening mammogram for malignant neoplasm of breast (principal); Z80.3 Family history of malignant neoplasm of breast
CPT/HCPCS: 77063; 77067